=== PATIENT | male | born 1980 | race African-American/Black ===

== ENCOUNTER → 2022-11-13 | Emergency (ER) | payer OTHER | END | disposition left against medical advice (07) | LOC: ER 23:55 | DX: T14.8XXA Other injury of unspecified body region, initial encounter (principal); Z53.21 Procedure and treatment not carried out due to patient leaving prior to being seen by health care provider; W54.0XXA Bitten by dog, initial encounter; Y93.89 Activity, other specified; Y92.89 Other specified places as the place of occurrence of the external cause; Y99.8 Other external cause status ==